=== PATIENT | male | born 1950 | race Caucasian/White ===

== ENCOUNTER → 2024-12-02 13:42 | Outpatient (CLI) | payer MEDICARE, SELFPAY ==
--- NOTE | 2024-12-02 13:47 | DI.RAD.S_ITS ---
PROCEDURE: XR THORACIC SPINE 2V INDICATIONS: Low back pain, unspecified TECHNIQUE: 3 views of the thoracic spine were acquired. COMPARISON: None. FINDINGS: Thoracic spine curvature and alignment: Slight accentuation of normal thoracic kyphotic curve Bones: Mild chronic wedging of the lower thoracic vertebral bodies appreciated likely due to chronic Scheuermann's disease from chronic disc degeneration Disc spaces: Moderate degenerative disc disease throughout the mid lower thoracic spine Soft tissues: No soft tissue swelling, calcification or mass. IMPRESSION: Chronic findings Dictated by: Sb Durant M.D. on 12/03/2024 at 11:49 Approved by: Sb Durant M.D. on 12/03/2024 at 11:50
--- NOTE | 2024-12-02 13:47 | DI.RAD.S_ITS ---
PROCEDURE: XR LUMBAR SPINE 2-3V INDICATIONS: Low back pain, unspecified TECHNIQUE: 3 views of the lumbar spine were acquired. COMPARISON: None. FINDINGS: Lumbar spine curvature and alignment: Moderate dextroscoliosis appreciated Bones: Mild chronic wedging of the T11 through L1 vertebral bodies likely related chronic Scheuermann's disease. Disc spaces: Moderate degenerative disc disease T10-11 through L3-4 and mild L5-S1 degenerative disc disease. Moderate L5-S1 degenerative facet disease Soft tissues: No soft tissue swelling, calcification or mass. IMPRESSION: Chronic findings as described Dictated by: Sb Durant M.D. on 12/03/2024 at 11:50 Approved by: Sb Durant M.D. on 12/03/2024 at 11:51
== END ==
LOC: RAD 13:46
PROVIDERS: PCP Internal Medicine; Referring Provider Internal Medicine; Visit Provider Internal Medicine
DX: M48.54XA Collapsed vertebra, not elsewhere classified, thoracic region, initial encounter for fracture (principal); M48.56XA Collapsed vertebra, not elsewhere classified, lumbar region, initial encounter for fracture; M51.34 Other intervertebral disc degeneration, thoracic region; M51.369 Other intervertebral disc degeneration, lumbar region without mention of lumbar back pain or lower extremity pain; M51.379 Other intervertebral disc degeneration, lumbosacral region without mention of lumbar back pain or lower extremity pain; M47.817 Spondylosis without myelopathy or radiculopathy, lumbosacral region; M54.50 Low back pain, unspecified
CPT/HCPCS: 72070; 72100